=== PATIENT | female | born 2000 | race Native Hawaiian/Other Pacific Islander ===

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

== ENCOUNTER 2018-01-28 15:26 | Emergency (ER) | payer OTHER ==
[~2018-01-28] VITALS: Ht 162.6 cm; Wt 50.8 kg
[2018-01-28 15:45] VITALS: TEMP 99
[2018-01-28 17:41] VITALS: BP 101/74
== END 2018-01-28 17:42 | disposition home or self-care (01) ==
LOC: ED 15:26
DX: M25.532 Pain in left wrist (principal); M79.605 Pain in left leg; V49.40XA Driver injured in collision with unspecified motor vehicles in traffic accident, initial encounter
CPT/HCPCS: 99283

== ENCOUNTER 2018-04-18 23:37 | Emergency (ER) | payer OTHER ==
[~2018-04-18] VITALS: Ht 162.6 cm; Wt 45.8 kg
[2018-04-19 00:36] LABS: PLATELET COUNT 272 K/uL (152-353)
[2018-04-19 00:53] LABS: POTASSIUM 3.4 mmol/L (3.6-5.2)
[2018-04-19 02:13] VITALS: BP 103/67; TEMP 98.5
== END 2018-04-19 02:13 | disposition home or self-care (01) ==
LOC: ED 23:37
DX: N75.0 Cyst of Bartholin's gland (principal)
CPT/HCPCS: 36415; 80053; 81000; 81025; 85027; 87535; 99284; G0432

== ENCOUNTER 2018-08-10 12:24 | Emergency (ER) | payer OTHER ==
[~2018-08-10] VITALS: Ht 162.6 cm; Wt 45.8 kg
[2018-08-10 12:53] VITALS: TEMP 97.8
[2018-08-10 16:10] VITALS: BP 108/68
== END 2018-08-10 16:10 | disposition home or self-care (01) ==
LOC: ED 12:24
PROC: 0U9L0ZZ Drainage of Vestibular Gland, Open Approach (ICD-10-PCS; principal; 2018-08-10)
DX: N75.0 Cyst of Bartholin's gland (principal)
CPT/HCPCS: 87070; 99283

== ENCOUNTER 2019-11-16 16:35 | Emergency (ER) | payer OTHER ==
[~2019-11-16] VITALS: Ht 162.6 cm; Wt 47.6 kg
[2019-11-16 16:45] VITALS: TEMP 98
[2019-11-16 18:40] VITALS: BP 110/61
== END 2019-11-16 18:40 | disposition home or self-care (01) ==
LOC: ED 16:35
DX: L55.9 Sunburn, unspecified (principal)
CPT/HCPCS: 36415; 96372; 99283; J2930

== ENCOUNTER 2021-02-06 16:50 | Emergency (ER) | payer OTHER ==
[~2021-02-06] VITALS: Ht 162.6 cm; Wt 47.6 kg
[2021-02-06] MEDS ORDERED: KETO10TA34 PO (17:26)
[2021-02-06 19:25] VITALS: BP 106/68; TEMP 98.5
== END 2021-02-06 19:25 | disposition home or self-care (01) ==
LOC: ED 16:50
DX: S13.4XXA Sprain of ligaments of cervical spine, initial encounter (principal); S20.219A Contusion of unspecified front wall of thorax, initial encounter; S80.12XA Contusion of left lower leg, initial encounter; S80.11XA Contusion of right lower leg, initial encounter
CPT/HCPCS: 99283

== ENCOUNTER 2021-04-01 13:43 | Emergency (ER) | payer OTHER ==
[~2021-04-01] VITALS: Ht 162.6 cm; Wt 52.2 kg
[~2021-04-01 13:43] MED LIST changes: +KETO10TA34 PO
[2021-04-01 14:20] VITALS: TEMP 98.3
[2021-04-01 15:35] VITALS: BP 112/66
== END 2021-04-01 17:24 | disposition home or self-care (01) ==
LOC: ED 13:43
DX: U07.1 COVID-19 (principal)
CPT/HCPCS: 87635; 99282; U0003